=== PATIENT | female | born 1965 | race Caucasian/White ===

== ENCOUNTER 2022-04-25 14:59 | Emergency (ER) | payer MEDICARE, OTHER ==
[2022-04-25 15:25] VITALS: BP 120/73; PULSE 91; RESP 16; TEMP 97.9
[2022-04-25 17:17] LABS: Albumin 3.6 g/dL (3.5-5.0); Calcium 9.5 mg/dL (8.4-10.2); Total Bilirubin 0.9 mg/dL (0.2-1.3); Total Protein 7.5 g/dL (6.3-8.2)
[2022-04-25 17:19] LABS: Potassium 4.6 mmol/L (3.5-5.1)
--- NOTE | 2022-04-25 18:08 | XR ---
EXAMINATION TYPE: XR KUB DATE OF EXAM: 04/25/2022 5:34 PM INDICATION: Patient age:Female; 56 years old; Reason for study: pain; COMPARISON: None. TECHNIQUE: One radiographic view of the abdomen was obtained. FINDINGS: The bowel gas pattern is nonspecific without dilated loops of small or large bowel. There i s no evidence for organomegaly or pneumoperitoneum. The osseous structures are intact. No abnormal calcifications are present. Fecal material and gas are demonstrated throughout the colon and rectum. Right upper quadrant cholecystectomy clips. There is midline surgical tasha noted. Scattered pelvic phleboliths. IMPRESSION: 1. Nonspecific bowel gas pattern without radiographic evidence for acute process. 2. Postsurgical changes.
--- NOTE | 2022-04-25 20:01 | ED ---
Nausea/Vomiting/Diarrhea HPI - General Chief complaint: Nausea/Vomiting/Diarrhea Stated complaint: vomiting, pt is dialysis pt Time Seen by Provider: 04/25/22 19:23 Source: patient, family, RN notes reviewed Mode of arrival: ambulatory - History of Present Illness Initial comments: This is a 56-year-old female who presents to the emergency department for nausea and vomiting. Patient states that 18 days ago she had a partial colectomy due to necrotic bowel. This was done at [facility]. For the last few days, she has not been feeling well and yesterday after dialysis, she started to have nausea and vomiting. She has mild abdominal pain associated with the retching, but the pain is not independent of that. She has been on hemodialysis Friday and Friday for 15 years. She follows with Dr. Barajas, nephrology. She has been drinking pop and ice cubes but has not been able to keep down any food. States that she does not like water. She is on a 32 ounce fluid restriction per day. She does not make her own urine. Denies any fevers, chills, sore throat, cough, dyspnea, chest pain, palpitations, diarrhea, back pain, or headaches. MD complaint: nausea, vomiting Onset/Timin -: days(s) Associated Abdominal Pain: Yes - Related Data Previous Rx's Medication Instructions Recorded Metoclopramide [Reglan] 5 mg PO Q6H PRN #30 tab 04/25/22 Allergies Allergy/AdvReac Type Severity Reaction Status Date / Time No Known Allergies Allergy Verified 04/25/22 15:25 Review of Systems ROS Statement: Those systems with pertinent positive or pertinent negative responses have been documented in the HPI. ROS Other: All systems not noted in ROS Statement are negative. Past Medical History Past Medical History: Atrial Fibrillation, Dialysis History of Any Multi-Drug Resistant Organisms: None Reported Past Surgical History: Bowel Resection Past Psychological History: No Psychological Hx Reported Smoking Status: Never smoker Past Alcohol Use History: None Reported Past Drug Use History: None Reported General Exam General appearance: alert, in no apparent distress Head exam: Present: atraumatic, normocephalic, normal inspection Respiratory exam: Present: normal lung sounds bilaterally. Absent: respiratory distress, wheezes, rales, rhonchi, stridor Cardiovascular Exam: Present: regular rate, normal rhythm, normal heart sounds. Absent: systolic murmur, diastolic murmur, rubs, gallop, clicks GI/Abdominal exam: Present: soft, normal bowel sounds. Absent: distended, tenderness, guarding, rebound, rigid Neurological exam: Present: alert, oriented X3, CN II-XII intact Psychiatric exam: Present: normal affect, normal mood Skin exam: Present: warm, dry, intact, normal color. Absent: rash Course Vital Signs 04/25/22 15:22 Temperature 97.9 F Pulse Rate 91 Respiratory 16 Rate Blood Pressure 120/73 O2 Sat by Pulse 100 Oximetry Medical Decision Making - Medical Decision Making This is a 56-year-old female who presents to the emergency department for nausea and vomiting. Lab work does reveal very poor kidney function. We do not have prior lab work in our system for comparison of her GFR and creatinine. However, these values are expected given that she is on dialysis. KUB x-ray revealed no acute irregularities. Patient was able to drink grape juice without any difficulty in the examination room. A CBC had to be redrawn, however the patient did not wish to wait for this prior to discharge. States that she feels much better and has dialysis scheduled for tomorrow, and would make sure they checked her labs. She inquired about additional nausea medicine to take with the Zofran. I spoke with the pharmacist, who advised renal dosing of 5 mg for the Reglan. Prescription for Reglan was provided to help with the patient's nausea. Advised she alternate this with the Zofran. We discussed adequate water intake within the allotted parameters of 32 ounces a day and slowly advancing her diet as tolerated. Return precautions reviewed in depth, the patient is instructed to return to the emergency department with any new, worsening, or concerning symptoms. Patient verbalized understanding. This case was discussed in detail with the attending ED physician. Presentation, findings, and treatment plan discussed in detail as well. - Lab Data Result diagrams: 04/25/22 16:39 Lab Results 04/25/22 04/25/22 Range/Units 16:39 19:38 Sodium 133 L (137-145) mmol/L Potassium 4.6 (3.5-5.1) mmol/L Chloride 95 L (98-107) mmol/L Carbon Dioxide 23 (22-30) mmol/L Anion Gap 15 mmol/L BUN 14 (7-17) mg/dL Creatinine 4.20 H (0.52-1.04) mg/dL Est GFR (CKD-EPI)AfAm 13 (>60 ml/min/1.73 sqM) Est GFR (CKD-EPI)NonAf 11 (>60 ml/min/1.73 sqM) Glucose 70 L (74-99) mg/dL Calcium 9.5 (8.4-10.2) mg/dL Total Bilirubin 0.9 (0.2-1.3) mg/dL AST 33 (14-36) U/L ALT 9 (4-34) U/L Alkaline Phosphatase 95 (38-126) U/L Total Protein 7.5 (6.3-8.2) g/dL Albumin 3.6 (3.5-5.0) g/dL Amylase 54 (30-110) U/L Lipase 236 (23-300) U/L Coronavirus (PCR) Not Detected (Not Detectd) - Radiology Data Radiology results: report reviewed, image reviewed Disposition Clinical Impression: Nausea and vomiting Disposition: HOME SELF-CARE Instructions (If sedation given, give patient instructions): Acute Nausea and Vomiting (ED) Additional Instructions: Return to the emergency department with any new, worsening, or concerning symptoms. Continue to take the Zofran as needed for nausea and vomiting. The Reglan can be taken up to every 6 hours, you can alternate this with the Zofran if needed. Make sure that you remain well-hydrated. Slowly advance your diet as tolerated. Prescriptions: Metoclopramide [Reglan] 5 mg PO Q6H PRN #30 tab PRN Reason: Nausea And Vomiting Is patient prescribed a controlled substance at d/c from ED?: No Referrals: Nilay Sims MD [Primary Care Provider] - 1-2 days
== END 2022-04-25 21:03 | disposition home or self-care (01) ==
LOC: EC 14:59
DX: R11.2 Nausea with vomiting, unspecified (principal); R10.9 Unspecified abdominal pain; Z20.822 Contact with and (suspected) exposure to COVID-19; Z86.79 Personal history of other diseases of the circulatory system; Z99.2 Dependence on renal dialysis
CPT/HCPCS: 36415; 74018; 80053; 82150; 83690; 87635; 93005; 99284